=== PATIENT | male | born 1980 | race African-American/Black ===

== ENCOUNTER 2017-04-30 10:38 | Emergency (ER) | payer MEDICAID ==
[2017-04-30] MEDS ORDERED: IBUPROFEN 600MG TABLET PO ONE (13:30)
[2017-04-30 13:33] VITALS: BP 105/70
== END 2017-04-30 13:45 | disposition home or self-care (01) ==
LOC: ER 10:38
DX: M25.532 Pain in left wrist (principal); M25.531 Pain in right wrist; Z87.442 Personal history of urinary calculi; W19.XXXA Unspecified fall, initial encounter; Y92.89 Other specified places as the place of occurrence of the external cause; Y93.66 Activity, soccer; Y99.8 Other external cause status
CPT/HCPCS: 99284